=== PATIENT | female | born 1955 | race African-American/Black ===

== ENCOUNTER 2020-12-31 17:09 | Emergency (ER) | payer MEDICAID ==
[~2020-12-31] VITALS: Ht 165.1 cm; Wt 70.0 kg
[2020-12-31] MEDS ORDERED: IBUPROFEN 600MG TABLET PO ONE (18:30)
[2020-12-31] MEDS ORDERED: IBUP-2029 MT (19:12)
[2020-12-31] MEDS ORDERED: CYCL10TA7 MT (19:14)
[2020-12-31 19:20] VITALS: BP 148/80
== END 2020-12-31 19:24 | disposition home or self-care (01) ==
LOC: ER 17:09
DX: S13.4XXA Sprain of ligaments of cervical spine, initial encounter (principal); M79.641 Pain in right hand; V49.40XA Driver injured in collision with unspecified motor vehicles in traffic accident, initial encounter; Y93.89 Activity, other specified; Y92.410 Unspecified street and highway as the place of occurrence of the external cause
CPT/HCPCS: 73130; 99283